=== PATIENT | female | born 1955 | race Caucasian/White ===

== ENCOUNTER 2017-06-02 06:26 | Day surgery (SDC) | payer OTHER ==
[2017-06-02] MEDS ORDERED: FENTAnyl 50 MCG/ML VIAL (08:39)
[2017-06-02] MEDS ORDERED: MIDAZOLAM 1 MG/ML 2 ML INJ (08:39)
== END 2017-06-02 14:08 | disposition home or self-care (01) ==
LOC: GIL 06:26
DX: Z12.11 Encounter for screening for malignant neoplasm of colon (principal); D12.3 Benign neoplasm of transverse colon; K57.90 Diverticulosis of intestine, part unspecified, without perforation or abscess without bleeding; K64.8 Other hemorrhoids
CPT/HCPCS: 45378; 88305